=== PATIENT | male | born 1990 ===

== ENCOUNTER 2017-03-15 10:36 | Emergency (ER) | payer MEDICAID ==
[2017-03-15 10:53] VITALS: BP 145/75; PULSE 75; RESP 18; TEMP 98; O2SAT 99
--- NOTE | 2017-03-15 12:21 | ED PDOC ---
HPI: General Adult Time Seen by Provider: 03/15/17 11:01 Chief Complaint (Nursing): Back Pain History Per: Patient Additional Complaint(s): Pt. states yesterday he was taking a shower when he slipped and fell landing on his back injuring his R scapula and his head. Reports no LOC. States headache is mild. Denies previous head injury, N/V, anticoagulant use, neck pain, SOB, chest pain. Past Medical History Reviewed: Historical Data, Nursing Documentation, Vital Signs Vital Signs: Last Vital Signs Temp 98 F 03/15/17 10:51 Pulse 75 03/15/17 10:51 Resp 18 03/15/17 10:51 BP 145/75 03/15/17 10:51 Pulse Ox 99 03/15/17 12:23 - Family History Family History: States: No Known Family Hx - Immunization History Hx Tetanus Toxoid Vaccination: No Hx Influenza Vaccination: No Hx Pneumococcal Vaccination: No - Home Medications Home Medications: Ambulatory Orders Medication Instructions Recorded Cyclobenzaprine [Cyclobenzaprine 10 mg PO Q8 PRN #30 tab 03/15/17 HCl] Naproxen [Naprosyn] 500 mg PO BID PRN #30 tab 03/15/17 - Allergies Allergies/Adverse Reactions: Allergies Allergy/AdvReac Type Severity Reaction Status Date / Time No Known Allergies Allergy Verified 08/07/15 20:31 Review of Systems ROS Statement: Except As Marked, All Systems Reviewed And Found Negative Musculoskeletal: Positive for: Shoulder Pain Physical Exam - Physical Exam Appears: Positive for: Well, Non-toxic, No Acute Distress Head Exam: Positive for: NORMAL INSPECTION, NORMOCEPHALIC. Negative for: ATRAUMATIC Skin: Positive for: Normal Color, Warm. Negative for: Rash Eye Exam: Positive for: EOMI, Normal appearance, PERRL ENT: Positive for: Normal ENT Inspection, TM Is/Are (no hemotympanum b/l) Neck: Positive for: Normal, Painless ROM Cardiovascular/Chest: Positive for: Regular Rate, Rhythm, Chest Non Tender Respiratory: Positive for: CNT, Normal Breath Sounds Pulses-Radial (L): 2+ Pulses-Radial (R): 2+ Gastrointestinal/Abdominal: Positive for: Normal Exam, Soft, Other (no ecchymosis). Negative for: Tenderness Back: Positive for: Muscle Spasm (R parascapular area with tenderness and minimal ecchymosis). Negative for: L CVA Tenderness, R CVA Tenderness, Vertebral Tenderness Extremity: Positive for: Capillary Refill (< 2 seconds of R upper extremity), Other (R lateral shoulder tenderness without deformity) Neurologic/Psych: Positive for: Alert, Oriented - ECG O2 Sat by Pulse Oximetry: 99 - Progress ED Course And Treament: Tylenol 975mg PO, flexeril 10mg PO ordered. R Scapula, R shoulder x-ray: no fx. Pt. placed on sling. Disposition - Clinical Impression Clinical Impression: Back contusion, Shoulder injury, Head injury - Patient ED Disposition Is Patient to be Admitted: No - Disposition Referrals: [facility] [place] [facility] [Outside] Disposition: Routine/Home Disposition Time: 13:28 Condition: STABLE Prescriptions: Cyclobenzaprine [Cyclobenzaprine HCl] 10 mg PO Q8 PRN #30 tab PRN Reason: Muscle Spasm Naproxen [Naprosyn] 500 mg PO BID PRN #30 tab PRN Reason: Pain Instructions: Head Injury (ED), Contusion in Adults (ED) Forms: [employer] (Hungarian) Print Language: LATVIAN
--- NOTE | 2017-03-15 16:50 | RAD ---
PROCEDURE: Radiographs of the Right Shoulder HISTORY: trauma COMPARISON: No prior. FINDINGS: BONES: Normal. No fracture. JOINTS: Normal. Glenohumeral and acromioclavicular joints preserved. No osteoarthritis. SOFT TISSUES: Normal. OTHER FINDINGS: None. IMPRESSION: Normal radiographs of the right shoulder.
--- NOTE | 2017-03-15 16:51 | RAD ---
PROCEDURE: RIGHT SCAPULA RADIOGRAPH SERIES HISTORY: trauma COMPARISON: NONE TECHNIQUE: Two views of the right scapula have been submitted for interpretation. FINDINGS: No acute fractures appreciated there is no suspicious lytic or blastic change identified. IMPRESSION: No acute fracture or suspicious lytic or blastic change identified. If symptoms persist or worsen consider follow-up CT or MRI.
== END 2017-03-15 13:56 | disposition home or self-care (01) ==
LOC: H.ER 10:36
DX: S09.90XA Unspecified injury of head, initial encounter (principal); S20.229A Contusion of unspecified back wall of thorax, initial encounter; S49.91XA Unspecified injury of right shoulder and upper arm, initial encounter; W18.2XXA Fall in (into) shower or empty bathtub, initial encounter; Y93.E1 Activity, personal bathing and showering